=== PATIENT | female | born 1935 | race Two or more races ===

== ENCOUNTER 2017-03-29 04:34 | Inpatient (IN) | payer MEDICARE, BC ==
[~2017-03-29] VITALS: Ht 154.9 cm; Wt 54.4 kg
[2017-03-29 07:45] VITALS: BP 117/59
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
[2017-03-29 08:00] VITALS: BP 117/59
[2017-03-29] MEDS ORDERED: DIAZ10TA4 PO (09:03)
[2017-03-29] MEDS ORDERED: RAMI2.5C PO (09:03)
[2017-03-29] MEDS ORDERED: METO25TA6 PO (09:03)
[2017-03-29 16:00] VITALS: BP 102/60
--- NOTE | 2017-03-29 16:45 | NUR ---
Initial discharge note: Pt. lives at home with a friend at [address] [place] [address] and will return. JAMES will follow up with Shon Luna [phone] regarding discharge plan. JAMES will follow up with and will arrange for a safe and proper discharge.
--- NOTE | 2017-03-29 19:36 | NUR ---
GPS/RN NOTE: PATIENT AWAKE, ALERT, ORIENTED X2-3. NO ACUTE DISTRESS NOTED. RESTING IN BED, COMFORTABLE, PLEASANT, COOPERATIVE.
[2017-03-29 20:11] VITALS: BP 120/51
[2017-03-30 06:56] LABS: ALANINE AMINOTRANSFERASE 15 U/L (12-78); ALBUMIN 3.4 g/dL (3.4-5.0); ALKALINE PHOSPHATASE 60 U/L (46-116); ASPARTATE AMINOTRANSFERASE 11 U/L (15-37); BILIRUBIN,TOTAL 0.4 mg/dL (0.2-1.0); CALCIUM, SERUM 8.8 mg/dL (8.5-10.1); CARBON DIOXIDE 28 mmol/L (21-32); CHLORIDE 107 mmol/L (98-107); CREATININE 0.7 mg/dL (0.6-1.3); GLUCOSE 103 mg/dL (74-106); SODIUM SERUM 143 mmol/L (136-145); TOTAL PROTEIN, SERUM 6.5 g/dL (6.4-8.2); UREA NITROGEN, BLOOD 12 mg/dL (7-18)
[2017-03-30 07:02] LABS: CHOLESTEROL 188 mg/dL (<200); HDL CHOLESTEROL 55 mg/dL (40-60); LDL 119 mg/dL (0-99); TRIGLYCERIDES 80 mg/dL (30-150)
[2017-03-30 08:00] VITALS: BP 135/74
--- NOTE | 2017-03-30 09:08 | NUR ---
WOUND CARE CONSULT: PT PRESENTS AMBULATORY AND CONTINENT WITH DRY ABRASION TO RT ARM. WILL SEE PRN. Addendum: 03/30/17 at 0909 by SUMAN DELGADILLO WNDNU Amended: Links added.
[2017-03-30 16:00] VITALS: BP 125/69
--- NOTE | 2017-03-30 18:00 | NUR ---
given mom for constipation and now pt. reports diarrhea.azeb endorse to eve. chou.
[2017-03-30 20:00] VITALS: BP 118/67
[2017-03-30 20:42] VITALS: BP 118/67
[2017-03-31 08:00] VITALS: BP 116/66
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
--- NOTE | 2017-03-31 15:30 | NUR ---
cabin worker attempted to contact KOTA Gutierrez ([phone]) to inform him that patient stated that she was not aware of a forth firearm and if he would come speak to her regarding the firearm tomorrow morning before discharge.
[2017-03-31 16:00] VITALS: BP 113/63
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
[2017-03-31 20:00] VITALS: BP 116/50
[2017-04-01 08:00] VITALS: BP 126/82
--- NOTE | 2017-04-01 13:00 | NUR ---
RN-CO: Patient is alert and oriented x 4.Calm and cooperative to care.Her affect is bright.Denied suicidal and homicidal ideation. Denied VH and HI.
--- NOTE | 2017-04-01 14:00 | NUR ---
RN-CO: DR ROUSE ORDERED TO DISCONTINUE HOLD AND DISCHARGE PATIENT TODAY.NOTED AND CARRIED OUT.
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
[2017-04-01 16:00] VITALS: BP 111/59
--- NOTE | 2017-04-01 16:28 | NUR ---
Discharge Note: Patient will be discharged home with her caregiver Luna Luc[facility] [address] . SW notified patient's caregiver Shon Luna ([phone]) who agreed to pick -up the patient at 6:00Pm via private vehicle. Patient was agreeable with the discharge plan. Patient's mood is pleasant and her affect is calm. Patient denies suicidal and homicidal ideations. Patient was referred to [address] [address] ([phone]). Patient agreed to follow-up with a psychiatrist within 30 days. For smoking cessation patient was referred to [facility] located at [address] [place] [address], [address], with an appointment for Tuesday04/04/17 at 6:30pm. Facilitated info to IDT team who are in agreement with discharge arrangement. The multidisciplinary exitcare form was done, printed, signed, and given to the patient.
--- NOTE | 2017-04-01 16:40 | NUR ---
odd bundle worker shayna [facility] ([phone]) and [facility] odd bundle worker Nidia Banks ([phone]) of patient discharge scheduled for today.
[2017-04-01 17:00] VITALS: BP 111/59
--- NOTE | 2017-04-01 17:22 | NUR ---
GPS/RN PT REFUSED 1700 MEDS. PT DOES NOT NEED THE PRESCRIPTIONS SHE HAS SUPPLY OF MEDS AT HOME AND REFILLS AT HER PHARMACY. PT REFUSED PICTURES TAKEN ON DISCHARGE. A/O X4. NO DISTRESS NO C/O PAIN REPORTED. NO SI OR HI REPORTED . PT'S CAREGIVER IS ON THE WAY TO THE HOSPITAL PER JAMES GIRON.
--- NOTE | 2017-04-01 18:05 | NUR ---
GPS/RN PT LEFT WITH CAREGIVER KUSH TO HER HOME. PT IS AMBULATORY NO SI OR HI AT THE TIME OF DISCHARGE. PRESCRIPTIONS/EXIT CARE GIVEN AND UNDERSTOOD. BELONGING AND MEDICATIONS RETURNED.
--- NOTE | 2017-04-04 15:17 | NUR ---
casing worker received a call from [facility] community mental health social worker Kasey ([phone]) requesting more information regarding the report filed. casing worker attempted to call William, however she was unavailable. casing worker left her a voicemail with a detailed message and direct contact number.
== END 2017-04-01 18:05 | disposition home or self-care (01) | DRG 885 ==
LOC: GPS 07:08
PROVIDERS: ADMIT Psychiatry & Neurology Psychosomatic Medicine; ATTEND Psychiatry & Neurology Psychosomatic Medicine
DX: F33.9 Major depressive disorder, recurrent, unspecified (principal); N18.3 Chronic kidney disease, stage 3 (moderate); F03.90 Unspecified dementia, unspecified severity, without behavioral disturbance, psychotic disturbance, mood disturbance, and anxiety; R45.851 Suicidal ideations; I12.9 Hypertensive chronic kidney disease with stage 1 through stage 4 chronic kidney disease, or unspecified chronic kidney disease; I25.10 Atherosclerotic heart disease of native coronary artery without angina pectoris; I48.0 Paroxysmal atrial fibrillation; Z88.0 Allergy status to penicillin
CPT/HCPCS: 36415; 70450-TC; 80053-TC; 80061-TC